=== PATIENT | female | born 1995 | race Caucasian/White ===

== ENCOUNTER 2019-01-30 21:25 | Inpatient (IN) | payer OTHER ==
[~2019-01-30] VITALS: Ht 157.5 cm; Wt 76.7 kg
[2019-01-30 21:30] VITALS: BP 128/77
--- NOTE | 2019-01-30 21:40 | NUR ---
PT AMBULATED TO BED WITH MOTHER
--- NOTE | 2019-01-30 22:00 | NUR ---
23 Y/O FEMALE C/O ABD PAIN AND BLOATING X 4 DAYS. PT DENIES N/V/D. ABD SOFT, ROUND, AND TENDER. LAST BM WAS TODAY, PT STATES ABNORMAL FORM, SMALL HARD "PEBBLE" LIKE. PT STATES RECTAL AND VAGINAL BLEEDING X1 DAY. LMP X 5 YEARS AGO. PT STATES PAIN AND BLOATING STARTED AFTER SHE WAS GIVEN UTI MEDICATION ON TUESDAY. PT POSITIONED IN BED FOR COMFORT. VSS. MEDHX: DENIES ALLERGIES: PENICILLIN
[2019-01-30] MEDS ORDERED: ONDANSETRON 4 MG/2 ML VIAL IVP ONE (23:05)
[2019-01-30] MEDS ORDERED: KETOROLAC 30 MG/ML VIAL IVP ONE (23:05)
[2019-01-30] MEDS ORDERED: NACL 0.9% 1,000 ML IV ONE (23:05)
[2019-01-30 23:29] LABS: BASOPHILS # (AUTO) 0.1 K/uL (0.00-0.22); BASOPHILS % (AUTO) 0.6 % (0.0-2.0); EOSINOPHILS # (AUTO) 0.3 K/uL (0-0.4); EOSINOPHILS % (AUTO) 2.2 % (0.0-4.0); HEMATOCRIT 39.9 % (36-48); HEMOGLOBIN 13.4 g/dL (12.0-16.0); LYMPHOCYTES # (AUTO) 2.8 K/uL (2.5-16.5); LYMPHOCYTES % (AUTO) 20.1 % (20.5-51.1); MEAN CORPUSCULAR HEMOGLOBIN 31 pg (27-31); MEAN CORPUSCULAR HGB CONC 34 g/dL (33-37); MEAN CORPUSCULAR VOLUME 92.2 fL (80-94); MONOCYTES # (AUTO) 0.7 K/uL (0.8-1.0); NEUTROPHILS % (AUTO) 72.1 % (42.2-75.2); PLATELET COUNT (AUTO) 290 K/uL (140-450); RED BLOOD CELL COUNT(AUTO) 4.33 MIL/uL (4.20-5.40); RED CELL DISTRIBUTION WIDTH 12.4 % (11.6-13.7); WHITE BLOOD COUNT (AUTO) 13.9 K/uL (4.8-10.8)
[2019-01-30 23:29] LABS: APPEARANCE,URINE SL CLOUDY (CLEAR); BILIRUBIN,URINE NEGATIVE (NEGATIVE); BLOOD, URINE 3+ (NEGATIVE); COLOR,URINE YELLOW (YELLOW); LEUKOCYTE ESTERASE ,URINE 2+ (NEGATIVE); NITRITE, URINE NEGATIVE (NEGATIVE); UGLUCOSE NEGATIVE (NEGATIVE)
--- NOTE | 2019-01-30 23:37 | NUR ---
PT TO CT VIA WHEELCHAIR.
[2019-01-30 23:38] LABS: ANION GAP 13.7 (8-16); CARBON DIOXIDE 26.6 mmol/L (21-32); CREATININE 0.9 mg/dL (0.6-1.3); POTASSIUM 3.3 mmol/L (3.5-5.1)
[2019-01-30 23:43] LABS: ALBUMIN 3.5 g/dL (3.4-5.0); TOTAL BILIRUBIN 0.3 mg/dL (0.0-1.0)
--- NOTE | 2019-01-30 23:46 | NUR ---
PT RETURNED FROM CT VIA WHEELCHAIR
[2019-01-30 23:48] LABS: RBC,URINE TOO NUMEROUS TO COUN /HPF (0-5); WBC,URINE TOO MANY TO COUNT /HPF (0-5)
--- NOTE | 2019-01-30 23:56 | NUR ---
PT STATES SOME RELIEF OF PAIN. 5/10 AT THIS TIME. DENIES NAUSEA. PT POSITIONED IN BED FOR COMFORT. VSS. WILL CONTINUE TO MONITOR
--- NOTE | 2019-01-31 00:15 | NUR ---
PT RESTING WITH EYES CLOSED, VISIBLE RISE AND FALL OF THE CHEST. NO COMPLAINTS AT THIS TIME. VSS. WILL CONTINUE TO MONITOR.
--- NOTE | 2019-01-31 00:58 | NUR ---
STATES TOLERABLE 4/10 PAIN WITH NO N/V/D
[2019-01-31] MEDS ORDERED: ONDANSETRON 4 MG/2 ML VIAL IVP ONE ×2 (01:05→02:45)
[2019-01-31] MEDS ORDERED: MORPHINE SULFATE 4 MG/ML SYR IVP ONE (01:05)
[2019-01-31] MEDS ORDERED: LEVOFLOXACIN 750 MG/D5W PREMIX 150 ML IV ONE (01:10)
[2019-01-31] MEDS ORDERED: metroNIDAZOLE 500 MG/NS PREMIX 100 ML IV ONE (01:10)
[2019-01-31] MEDS ORDERED: NACL 0.9% 1,000 ML IV ONE (01:35)
--- NOTE | 2019-01-31 01:40 | NUR ---
MEDICATED PER ERMDS ORDER TOLERATED WELL.
--- NOTE | 2019-01-31 01:46 | NUR ---
FOR ULTRASOUND, TECH AT BEDSIDE, PATIENT TOLERATED WELL.
--- NOTE | 2019-01-31 02:25 | NUR ---
ALL RESULTS BACK AND NOTED BY ERMD , FOR POSSIBLE TRANSFER OR ADMISSION
[2019-01-31] MEDS ORDERED: METOCLOPRAMIDE 10 MG/2 ML INJ VIAL IVP ONE (03:25)
[2019-01-31] MEDS ORDERED: diphenhydrAMINE 50 MG/ML VIAL IVP ONE (03:25)
--- NOTE | 2019-01-31 03:34 | NUR ---
Patient will be admitted to care of DR. DAMON. Admited to MS. Will go to [id number]. Belongings list completed. Report to GUSTAVO CORRAL
[2019-01-31 04:00] VITALS: BP 117/85
--- NOTE | 2019-01-31 04:00 | NUR ---
PT BROUGHT UP BY FISH ESCORTED BY LEONID SHUTTLER CAR NURSE TO ROOM 106, PT AMBULATED TO BED A. PT IS CURRENTLY SLEEPY DUE TO PAIN AND ANTI NAUSEA MEDICATIONS FROM ER, BUT IS BASELINE AOX4. WITH SKIN INTACT. PT HAS 2 IV SITES LAC 20G AND R/FA 22G. PT ADMISSION INFORMATION PROVIDED BY MOTHER AT BEDSIDE DUE TO PT FEELING DROWSY. PT HAS NO S/S OF PAIN AT THIS TIME. V/S FOLLOWS: T 98.5 P 88 R 18 B/P 117/85 02 99% ON ROOM AIR. BED LOW SIDE RAISED UP X2 AND CALL BEL L IN REACH. MRSA SWAB DONE ON NARES. MOTHER REMAINS AT BEDSIDE.
--- NOTE | 2019-01-31 04:30 | NUR ---
DR. DAMON PAGED, AWAITING ADMISSION ORDERS.
--- NOTE | 2019-01-31 05:30 | NUR ---
ADMISSION ORDERS RECEIVED FROM MG NELSON ORTEZ.
[2019-01-31] MEDS: NACL 0.9% 1,000 ML IV SCH ×2 (06:00→19:00)
[2019-01-31] MEDS ORDERED: ONDANSETRON 4 MG/2 ML VIAL IVP PRN (06:00)
[2019-01-31] MEDS ORDERED: KETOROLAC 30 MG/ML VIAL IVP PRN (06:00)
--- NOTE | 2019-01-31 07:20 | NUR ---
REPORT GIVEN TO [facility] RN DAYSHIFT FOR CONTINUITY OF CARE, PT IN STABLE CONDITION.
--- NOTE | 2019-01-31 07:30 | NUR ---
RECEIVED REPORT FROM NIGHT RN. PATIENT IS FULL CODE, ALLERGIES TO PENICILLIN. IV TO L AC 20G, AAOX4, AMBULATORY. PATIENT IS CURRENTLY NPO, AWAITING CONSULT WITH DR BAEZ. WILL CONTINUE WITH PLAN OF CARE FOR THE DAY.
--- NOTE | 2019-01-31 08:15 | NUR ---
OBTAINED CONSENT FOR CT PELVIS WITH CONTRAST. PATIENT SIGNED CONSENT AND VERBALIZED UNDERSTANDING. DR GONZALEZ AT BEDSIDE DOING ABDOMINAL EXAM.
--- NOTE | 2019-01-31 08:38 | NUR ---
PATIENT HAS BEEN SCREENED AND CATEGORIZED LOW NUTRITION RISK. PATIENT WILL BE SEEN WITHIN 7 DAYS OF ADMISSION. 02/06/[address]
--- NOTE | 2019-01-31 10:21 | NUR ---
PATIENT IS OFF THE UNIT FOR CT PELVIS WITH CONTRAST.
--- NOTE | 2019-01-31 10:41 | NUR ---
PATIENT IS BACK ON UNIT FROM RADIOLOGY.
--- NOTE | 2019-01-31 11:30 | NUR ---
PER DR GONZALEZ, PATIENT WILL NOT BE HAVING SURGERY TODAY, PLACED ON CLEAR LIQUID DIET.
--- NOTE | 2019-01-31 11:47 | NUR ---
Network Support Analyst Note: Basic Screen: Yes High Risk DC Screen Bright: ADINA BENITEZ Home Relationship: MOTHER Pre-Admission Living Arrangements: Lives with Other Other: LIVES WITH PARENTS Prior ADL Independent Current Home Health Name/Tel: N/A Current DME/02 Name/Tel: N/A Current Hospice Name/Tel: N/A Current Dialysis Name/Tel: N/A Healthcare Decision Maker: Patient Advance Directive No - REFUSED Physician Orders for Life Sustaining Treatment Form No Patient/Family Have Educational Needs No Information Taught: Advance Directive Community Resources Person Taught: Patient Teaching Tools: Verbal Factors Affecting Learning: None Participation Level: Refused Evaluation: Verbalizes Understanding Discipline: Case Mgt/Social Svcs Tentative Discharge Plan/Destination: No Needs Identified Will require assistance post discharge: No Referred to [facility] Supervisor: No Tentative Discharge Plan Summary: Patient is a 23-year-old female admitted for appendicitis. Patient has no significant PMHX. Patient was admitted from home. SW met with patient's mother at bedside to complete assessment and verify demographics. Patient's mother, Adina Benitez reported that patient has a history of mental health with diagnoses of depression and bipolar disorder. Adina stated that patient is beginning to begin psychiatry at [facility] this month. [place] stated that patient does not have a history of substance abuse. Adina stated that patient's tentative discharge plan is to return home. No further needs identified. Signature: SAMMY Giraldo Date: Jan 31, 2019 Time: 11:26
[2019-01-31] MEDS: metroNIDAZOLE 500 MG/NS PREMIX 100 ML IV SCH ×2 (13:32→20:29)
--- NOTE | 2019-01-31 13:32 | NUR ---
BEGAN INFUSION OF FLAGYL. PATIENT IS SLEEPING, EASILY AROUSABLE.
--- NOTE | 2019-01-31 14:31 | NUR ---
PCP Appointment: YARELIS contacted Ricarda from Dr. Lion Langley's office [phone]. YARELIS made hospital follow up appointment at 1400 on 02/08/2019 @ [address] [place] [address]. Patient's appointment slip was left in patient's chart to be given at discharge. No further needs identified.
[2019-01-31 16:00] VITALS: BP 119/81
[2019-01-31] MEDS: MORPHINE SULFATE 2 MG/ML SYR IVP PRN ×2 (17:42→23:39)
--- NOTE | 2019-01-31 17:44 | NUR ---
ADMINISTERED MORPHINE FOR ABDOMINAL PAIN. PER DR GONZALEZ, PATIENT WILL BE ADVANCED TO A SOFT DIET WITH LOW FIBER
--- NOTE | 2019-01-31 18:29 | NUR ---
PER DR JUNG, OBTAIN CONSENT FOR COLONOSCOPY. GIVE PATIENT DULCOLAX 15MG STAT WITH 1 BOTTLE SUPREP FOLLOWED BY 500ML OF H20. REPEAT AT MIDNIGHT. PATIENT CAN DRINK UNTIL 0600. PROCEDURE WILL BE AT 0800.
[2019-01-31] MEDS ORDERED: BISACODYL 5 MG TABEC PO SCH ×2 (18:45)
--- NOTE | 2019-01-31 18:54 | NUR ---
ADMINISTERED DULCOLAX 15MG PO
[2019-01-31] MEDS ORDERED: SUPREP BOWEL PREP KIT 354 ML SOLN.RECON PO SCH (19:10)
--- NOTE | 2019-01-31 19:20 | NUR ---
RECEIVED FROM AM RN IN BED AWAKE AND ALERT. WATCHING A VIDEO IN HER CELL PHONE. RE-ORIENTED TO CALL LIGHT USE AND SURROUNDINGS. CARE PLANS FOR THE NIGHT DISCUSSED WITH HER. ABLE TO VERBALIZE NEEDS WELL WITH ME IN [place]. NO COMPLAINTS OF ANY PAIN AT THIS TIME. NO SOB. FOR COLONOSCOPY BY MD JUNG IN AM PER AM RN. ENCOURAGED TO CALL FOR ANY HELP SHE MAY NEED. "OK"
--- NOTE | 2019-01-31 20:24 | NUR ---
ONE SUPREP BOWEL PREP ADMINISTERED AND DULCOLAX 15 MG P.O. ADMINISTERED AT THIS TIME.
[2019-01-31] MEDS ORDERED: BISACODYL 5 MG TABEC ONE (21:30)
--- NOTE | 2019-01-31 21:36 | NUR ---
DULCOLAX 5MG P.O. ADMINISTERED( OVER RIDE) RT 1 TABLET(5MG) FELL ON THE FLOOR WHEN PT. WAS ABOUT TO DRINK IT.
[2019-01-31 23:42] VITALS: BP 132/86
--- NOTE | 2019-01-31 23:44 | NUR ---
PT. STATED THAT SH FEELS LIKE HER VAGINA IS COMING OUT AND IT HURTS IN HER LOWER ABDOMEN TOO" REQUESTED FOR PAIN RELIEVER AND ANTI NAUSEA. MEDICATED WITH MORPHINE 2 MG IVP AND ZOFRAN IVP REQUESTED. CALL LIGHT WITH IN REACH.
[2019-02-01] MEDS ORDERED: SUPREP BOWEL PREP KIT 354 ML SOLN.RECON PO SCH
--- NOTE | 2019-02-01 01:58 | NUR ---
PT. PRESENTLY SITTING IN BR AND GOING BM. STATED THAT SHE IS CRAMPING. EXPLAINED THAT IT IS PART OF THE BOWEL PREP THAT SHE IS HAVING. "OH, OK" ABLE TO VERBALIZE NEEDS WELL. ABLE TO USE CALL LIGHT FOR HELP.
[2019-02-01] MEDS ORDERED: LEVOFLOXACIN 500 MG/D5W PREMIX 100 ML IV SCH (02:00)
--- NOTE | 2019-02-01 04:00 | NUR ---
PT. AWAKE AND STEAM BRUSH OPERATOR IN HERE TO COLLECT BLOOD SPECIMEN . NO COMPLAINTS DONE. REMINDED TO CALL IF WITH ANOTHER BM TO CHECK FOR CLEARNESS. LATEST ONE WAS STILL WITH SOME FIBERS NOTED. PER PT. MOSTLY LIQUID BM. BED ALARM ON TO KEEP TRACK OF HER GOING BM. REMINDED THAT LIQUID NPO STARTS AT 6 AM PER MD ORDER.
[2019-02-01] MEDS: metroNIDAZOLE 500 MG/NS PREMIX 100 ML IV SCH ×2 (04:34→14:15)
[2019-02-01 06:10] LABS: BASOPHILS % (AUTO) 0.2 % (0.0-2.0); EOSINOPHILS % (AUTO) 0.3 % (0.0-4.0); HEMATOCRIT 40.6 % (36-48); HEMOGLOBIN 13.5 g/dL (12.0-16.0); LYMPHOCYTES # (AUTO) 1.4 K/uL (2.5-16.5); LYMPHOCYTES % (AUTO) 8.7 % (20.5-51.1); MEAN CORPUSCULAR HEMOGLOBIN 31 pg (27-31); MEAN CORPUSCULAR HGB CONC 33 g/dL (33-37); MEAN CORPUSCULAR VOLUME 92.6 fL (80-94); MONOCYTES # (AUTO) 1.1 K/uL (0.8-1.0); NEUTROPHILS # (AUTO) 13.2 K/uL (1.8-7.7); NEUTROPHILS % (AUTO) 83.8 % (42.2-75.2); PLATELET COUNT (AUTO) 295 K/uL (140-450); RED BLOOD CELL COUNT(AUTO) 4.39 MIL/uL (4.20-5.40); RED CELL DISTRIBUTION WIDTH 12.5 % (11.6-13.7); WHITE BLOOD COUNT (AUTO) 15.7 K/uL (4.8-10.8)
--- NOTE | 2019-02-01 06:54 | NUR ---
PT. WAKES UP EASILY. BEEN TO RESTROOM AND WENT BM. NOTED YELLOW IN COLOR AND LIQUID FORM. NO PARTICLES NOTED ANYMORE. SLEPT BACK AFTER.
--- NOTE | 2019-02-01 07:20 | NUR ---
RECEIVED BEDSIDE REPORT FROM INSURANCE COUNSELOR NURSE FOR CONTINUITY OF CARE. PT IS AWAKE AND RESTING ON BED AT THIS TIME. MOTHER IS BY BEDSIDE. PT IS AAOX4. RESPIRATION EVEN AND UNLABORED ON RA. DENIED PAIN, SOB, NAUSEA AND VOMITING. NO SIGNS OF DISTRESS NOTED. IV ON R HAND 22G, CLEAN AND INTACT, SL. LAC 20G, CLEAN AND INTACT, INFUSING PER MD ORDER. SKIN CLEAN AND DRY. PT IS CONTINENT AND ABLE TO AMBULATE WITH STANDBY ASSIST. DISCUSSED PLAN OF CARE WITH PT AND PT VERBALIZED UNDERSTANDING. NPO ENFORCED FOR COLONOSCOPY PROCEDURE AND PATINET WAS AWARE. SAFETY MEASURES IN PLACE. BED IN LOW POSITION AND CALL LIGHT WITHIN REACH. INSTRUCTED PT TO USE THE CALL LIGHT FOR ANY ASSISTANCE AND PT SAID OK.
[2019-02-01] MEDS ORDERED: fentaNYL 0.05 MG/ML VIAL ONE (07:33)
[2019-02-01] MEDS ORDERED: MIDAZOLAM 2 MG/2 ML VIAL ONE (07:34)
--- NOTE | 2019-02-01 07:48 | NUR ---
PT IS OFF UNIT TO OR ACCOMPANIED WITH OR NURSES. PT IS IN STABLE CONDITION.
[2019-02-01 08:00] VITALS: BP_SYST 102; BP_SYST 103; BP_DIAS 56; BP_DIAS 65
[2019-02-01] MEDS ORDERED: fentaNYL 0.1 MG/HR PATCH TD SCH (08:20)
[2019-02-01] MEDS ORDERED: MIDAZOLAM 2 MG/2 ML VIAL IVP ONE (08:20)
--- NOTE | 2019-02-01 08:35 | NUR ---
PT CAME BACK TO HER ROOM AT THIS TIME ACCOMPANIED WITH OR NURSE DARREN AND MOTHER. VITAL SIGNS TAKEN. PT DENIED PAIN, NAUSEA AND VOMITING AT THIS TIME. PT REQUESTED FOR AN APPLE JUICE, PROVIDED. PT IS AWAKE AND TALKING TO MOTHER AT BEDSIDE. NO SIGNS OF DISTRESS NOTED. SAFETY MEASURES IN PLACE. BED IN LOW POSITION AND CALL LIGHT WITHIN REACH. INSTRUCTED PT TO USE THE CALL LIGHT FOR ANY ASSISTANCE AND PT WAS AWARE.
[2019-02-01] MEDS: NACL 0.9% 1,000 ML IV SCH (08:40)
[2019-02-01] MEDS ORDERED: fentaNYL 0.05 MG/ML VIAL IVP ONE (09:25)
--- NOTE | 2019-02-01 09:50 | NUR ---
PT IS RESTING IN BED. MOM IS AT BEDSIDE. DENIES PAIN AT THIS TIME. NO SIGNS OF DISTRESS. BED IS IN LOW POSITION AND CALL LIGHT WITHIN REACH.
--- NOTE | 2019-02-01 11:28 | NUR ---
PT IS RESTING ON BED, MOM AT BEDSIDE. DENIED PAIN, NAUSEA AND VOMITING. SAFETY MEASURES IN PLACE. BED IN LOW POSITION AND CALL LIGHT WITHIN REACH. INSTRUCTED PT TO USE THE CALL LIGHT FOR ANY ASSISTANCE AND PT SAID OK.
--- NOTE | 2019-02-01 12:47 | NUR ---
SPOKE TO DR DAMON ON THE PHONE AND INFORMED THAT DR GONZALEZ SAID PT IS OK TO DC HOME. PER DR DAMON, HOLD THE NORCO AND ANTIBIOTIC PRESCRIPTIONS AND PROVIDED PT WITH DR GONZALEZ'S PRESCRIPTION ONLY. REPEATED AND CONFIRMED WITH DR DAMON.
--- NOTE | 2019-02-01 13:10 | NUR ---
PT IS RESTING ON BED AT THIS TIME. EXPLAINED TO PT THAT SHE WILL BE DC TODAY AND PT WAS AWARE AND WILL NOTIFY HER MOM. NO SIGNS OF DISTRESS NOTED. SAFETY MEASURES IN PLACE. BED IN LOW POSITION AND CALL LIGHT WITHIN REACH.
--- NOTE | 2019-02-01 14:15 | NUR ---
ADMINISTERED MED PER MD ORDER, MED ED PROVIDED TO PT AND PT VERBALIZED UNDERSTANDING. PT IS RESTING ON BED AT THIS TIME. MOM AT BEDSIDE. NO SIGNS OF DISTRESS NOTED. BED IN LOW POSITION AND CALL LIGHT WITHIN REACH.
--- NOTE | 2019-02-01 15:13 | NUR ---
ANTIBIOTIC IS STILL INFUSING AND PT IS RESTING ON BED AND STATED " I WANT TO FINISH THE LAST ANTIBIOTIC BEFORE GOING HOME." MOTHER IS BY BEDSIDE. DENIED PAIN, SOB, NAUSEA AND VOMITING. NO SIGNS OF DISTRESS NOTED. SAFETY MEASURES IN PLACE. BED IN LOW POSITION AND CALL LIGHT WITHIN REACH. INSTRUCTED PT TO USE THE CALL LIGHT FOR ANY ASSISTANCE AND PT WAS AWARE.
--- NOTE | 2019-02-01 16:05 | NUR ---
DISCHARGE INSTRUCTION PROVIDED TO PT AND PT'S MOM AT BEDSIDE. EDUCATED PT ON MD FOLLOW UP, SEEK MEDICAL HELP IN CASE OF MEDICAL EMERGENCY, MEDICATION REGIMEN, SIDE EFFECTS, DISEASE MANAGEMENT, AND DIET. ANSWERED ALL PT'S AND MOTHER'S QUESTIONS, BOTH VERBALIZED UNDERSTANDING. DC IV AND CANNULA INTACT, NO BLEEDING AT IV SITES. REMOVED ALL ARM BANDS. PATIENT CHECKED CABINETS AND TOOK ALL BELONGINGS WITH HER. PT REFUSED FLU VACCINE, VACCINATION EDUCATION PROVIDED AND PT INSISTED NOT WANTING IT. PRESCRIPTION PROVIDED TO PT. ESCORTED PT TO THE FRONT LOBBY. PT IS GOING TO DC AT THIS TIME ACCOMPANY WITH MOTHER. PT IS IN STABLE CONDITION.
== END 2019-02-01 16:05 | disposition home or self-care (01) | DRG 254 ==
LOC: MED 21:25 → MTU 01-31 03:34
PROVIDERS: ADMIT Internal Medicine; ATTEND Internal Medicine
PROC: 0DBN8ZX Excision of Sigmoid Colon, Via Natural or Artificial Opening Endoscopic, Diagnostic (ICD-10-PCS; 2019-02-01)
PROC: 0DBP8ZX Excision of Rectum, Via Natural or Artificial Opening Endoscopic, Diagnostic (ICD-10-PCS; principal; 2019-02-01 08:00)
DX: K60.2 Anal fissure, unspecified (principal); K52.9 Noninfective gastroenteritis and colitis, unspecified; N39.0 Urinary tract infection, site not specified; K62.5 Hemorrhage of anus and rectum; Z88.0 Allergy status to penicillin
CPT/HCPCS: 36415; 72194; 76856; 80053; 81001; 83605; 83690; 84702; 85025; 87040; 87081; 87086; 88305; 96365; 96367; 96375; 96376; 99285; J1200; J1885; J1956; J2250; J2270; J2405; J2765; J3010; J3490; J7030; Q0092; Q9967

== ENCOUNTER 2021-12-11 21:17 | Emergency (ER) | payer OTHER ==
[~2021-12-11] VITALS: Ht 157.5 cm; Wt 72.6 kg
[2021-12-11 21:20] VITALS: BP 115/97
--- NOTE | 2021-12-11 21:40 | NUR ---
pt to bed 6
[2021-12-11] MEDS ORDERED: ONDANSETRON 4 MG/2 ML VIAL IVP ONE (21:55)
[2021-12-11] MEDS ORDERED: NACL 0.9% 1,000 ML IV ONE (21:55)
[2021-12-11 22:14] LABS: BASOPHILS % (AUTO) 0.6 % (0.0-2.0); EOSINOPHILS # (AUTO) 0.1 K/uL (0-0.4); EOSINOPHILS % (AUTO) 0.9 % (0.0-4.0); HEMATOCRIT 39.4 % (36-48); HEMOGLOBIN 13.9 g/dL (12.0-16.0); LYMPHOCYTES # (AUTO) 2.8 K/uL (2.5-16.5); MEAN CORPUSCULAR HEMOGLOBIN 32 pg (27-31); MEAN CORPUSCULAR HGB CONC 35 g/dL (33-37); MEAN CORPUSCULAR VOLUME 90.8 fL (80-94); MONOCYTES # (AUTO) 0.5 K/uL (0.8-1.0); MONOCYTES % (AUTO) 5.9 % (1.7-9.3); NEUTROPHILS # (AUTO) 4.5 K/uL (1.8-7.7); NEUTROPHILS % (AUTO) 56.6 % (42.2-75.2); PLATELET COUNT (AUTO) 217 K/uL (140-450); RED BLOOD CELL COUNT(AUTO) 4.35 MIL/uL (4.20-5.40); RED CELL DISTRIBUTION WIDTH 12.3 % (11.6-13.7); WHITE BLOOD COUNT (AUTO) 7.9 K/uL (4.8-10.8)
--- NOTE | 2021-12-11 22:25 | NUR ---
Patient resting in bed, A/Ox4, chest rise and fall symmetrical, no c/o pain or s/s of distress.
--- NOTE | 2021-12-11 22:29 | NUR ---
Poison Control Pharmacist Tristian Rendon called at , given patient's history, history of events, and current vital signs. Informed by Fernando Rendon to "watch patient for 2 hours, if patient has respiratory depression give Narcan." Addendum: 12/11/21 at 2242 by [id number] Poison Control Pharmacist Tristian Rendon called at [phone], given patient's history, history of events, and current vital signs. Informed by Fernando Rendon to "watch patient for 2 hours, if patient has respiratory depression give Narcan." Dr. Ambrose verbally informed. Dr. Ambrose verbalized understanding, no further questions or orders.
[2021-12-11 22:37] LABS: ALBUMIN 3.6 g/dL (3.4-5.0); ANION GAP 13.5 (8-16); ASPARTATE AMINOTRANSFERASE 15 U/L (15-37); CARBON DIOXIDE 23.7 mmol/L (21-32); CHLORIDE 109 mmol/L (98-107); GFR ARICAN-AMERICAN 86 mL/min (>90); GLUCOSE 113 mg/dL (74-106); POTASSIUM 3.2 mmol/L (3.5-5.1); SODIUM SERUM 143 mmol/L (136-145); TOTAL BILIRUBIN 0.3 mg/dL (0.0-1.0); UREA NITROGEN, BLOOD 18 mg/dL (7-18)
[2021-12-11 22:41] LABS: SALICYLATE < 2.8 mg/dL (2.8-20.0)
--- NOTE | 2021-12-11 23:00 | NUR ---
Patient lying in bed, A/Ox4, chest rise and fall symmetrical, oxygen saturation 100% on Room Air, no c/o pain or s/s of discomfort.
[2021-12-11] MEDS ORDERED: NAPR-1871 PO (23:15)
[2021-12-11] MEDS ORDERED: NALO4SPR NS (23:15)
--- NOTE | 2021-12-12 00:05 | NUR ---
Patient lying in bed, A/Ox4, chest rise and fall symmetrical, oxygen saturation 100% on Room Air, no c/o pain or s/s of discomfort.
[2021-12-12] MEDS ORDERED: ONDANSETRON 4 MG ODT PO ONE (00:15)
[2021-12-12 00:27] LABS: ACETAMINOPHEN < 0.5 ug/ml (10-30)
--- NOTE | 2021-12-12 01:00 | NUR ---
Patient lying in bed, A/Ox4, chest rise and fall symmetrical, oxygen saturation 100% on Room Air, no c/o pain or s/s of discomfort.
[2021-12-12 01:20] VITALS: BP 122/74
== END 2021-12-12 01:20 | disposition home or self-care (01) ==
LOC: MED 21:17
DX: R42 Dizziness and giddiness (principal); T40.601A Poisoning by unspecified narcotics, accidental (unintentional), initial encounter; Y92.89 Other specified places as the place of occurrence of the external cause
CPT/HCPCS: 36415; 80053; 85025; 96361; 96374; 99283; G0480; J2405; J7030; Q0162